=== PATIENT | male | born 1980 | race Caucasian/White ===

== ENCOUNTER 2019-06-05 05:44 | Day surgery (SDC) | payer OTHER ==
[2019-06-05] MEDS ORDERED: FENTAnyl 50 MCG/ML VIAL (09:26)
[2019-06-05] MEDS ORDERED: MIDAZOLAM 1 MG/ML 2 ML INJ ×2 (09:26→09:27)
== END 2019-06-05 11:11 | disposition home or self-care (01) ==
LOC: GIL 05:44 → SDS 05:44 → GIL 05:44
DX: K44.9 Diaphragmatic hernia without obstruction or gangrene (principal); K21.0 Gastro-esophageal reflux disease with esophagitis
CPT/HCPCS: 43239; 88305